=== PATIENT | male | born 1965 | race African-American/Black ===

== ENCOUNTER 2022-07-04 15:13 | Emergency (ER) | payer OTHER, SELFPAY ==
--- NOTE | ~2022-07-04 | CT_ITS ---
EXAMINATION: CT brain wo con DATE: 07/04/2022 19:16 INDICATION: new headache and hypertension . TECHNIQUE: Computed tomography (CT) of the head was performed without intravenous contrast. The mA wa s adjusted according to patient size. Iterative reconstruction technique was employed. The dose-lengt h product was 605.33 mGy-cm. COMPARISON: None. FINDINGS: No acute intracranial hemorrhage or extra-axial fluid collection. No hydrocephalus, mass, or herniation. No acute ischemic infarct. Unremarkable dural venous sinus attenuation. No acute osseous abnormality. The aerated spaces are clear. IMPRESSION: No acute intracranial process. Reviewed, dictated and finalized at location K.
--- NOTE | ~2022-07-04 | XR_ITS ---
EXAMINATION: XR chest 2V Exam Date/Time: 07/04/2022 19:15 CDT HISTORY: HTN, HIGH BP, LIGHTHEADEDNESS Comparison: None available. RESULT: Lines, tubes, and devices: None. Lungs and pleura: Clear. Cardiomediastinal silhouette: Stable. Other: No acute osseous or upper abdominal finding. IMPRESSION: No acute cardiopulmonary process. Reviewed, dictated and finalized at location K.
[2022-07-04 16:04] VITALS: BP 181/114; PULSE 56; RESP 18; TEMP 36.6; O2SAT 99
--- NOTE | 2022-07-04 18:37 | ECG_ITS ---
Measurements Intervals [place] Rate: 54 P: 55 WI: 154 QRS: 9 QRSD: 91 T: 52 QT: 455 QTc: 432 Interpretive Statements SINUS BRADYCARDIA POSSIBLE RIGHT VENTRICULAR CONDUCTION DELAY [RSR (QR) IN V1/V2] NO PREVIOUS ECG AVAILABLE FOR COMPARISON Electronically Signed On 07-05-2022 12:18:02 CDT by Isacc Bunch M.D.
--- NOTE | 2022-07-04 19:17 | ED.HA ---
HPI - Headache General Chief Complaint: Headache Stated Complaint: headache, elevated BP Time Seen by Provider: 07/04/22 18:36 History of Present Illness HPI Narrative: 57-year-old male here for evaluation of headache today. Patient states that he has had intermittent headaches for the past several years and he believes it is associated when he has high blood pressure. 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 She took his blood pressure and it was noted to be 190 systolic and she told him to come to the ER. Patient states he went home and went to sleep, woke up and the headache was still there so he decided to come to the ED. BP is 181/114 on arrival. He has no chest pain, shortness of breath, fevers or chills, nausea or vomiting, visual changes, unilateral weakness. He does not take antihypertensives and has not seen a doctor in 30 years. Related Data Allergies Allergy/AdvReac Type Severity Reaction Status Date / Time No Known Allergies Allergy Unverified 02/28/15 12:56 Review of Systems Review of Systems: Gen.: Denies fevers or chills Eyes: Denies eye pain or visual change ENT: Denies congestion Respiratory: Denies shortness of breath or cough CV: Denies chest pain or palpitations GI: Denies abdominal pain nausea, emesis or diarrhea denies burning, urgency, frequency or hematuria Musculoskeletal: Denies back pain or muscle pain Neuro: Reports headache. Denies numbness, tingling, weakness or focal weakness Skin: Denies rash Except as documented, all other systems reviewed and negative Exam Narrative: APPEARANCE: Well appearing, no pain in distress, well-nourished. Head: Normocephalic and atraumatic. EYES: PERRLA/EOMI, conjunctivae clear NOSE: No nasal drainage EARS: External ear normal in appearance THROAT: Oropharynx is clear. Mucous membranes are moist. NECK: Supple. No adenopathy, no masses. RESPIRATORY: Airway patent, respirations nonlabored. Clear to auscultation bilaterally, no rales, rhonchi, wheezing. CARDIOVASCULAR: Regular rate and rhythm without murmurs, rubs, or gallops. ABDOMINAL: Normoactive bowel sounds. Soft, nontender, nondistended. No rebound tenderness or guarding. MUSCULOSKELETAL: Extremities are warm and well-perfused. Moves all extremities well. No edema. NEURO: Normal speech. No focal neurologic deficits. SKIN: Skin is warm and dry. No rashes. PSYCHIATRIC: Normal affect/mood.. Course Vital Signs Vital signs: Vital Signs Temperature 97.9 F 07/04/22 16:04 Pulse Rate 56 L 07/04/22 16:04 Respiratory Rate 18 07/04/22 16:04 Blood Pressure 181/114 H 07/04/22 16:04 Pulse Oximetry 99 07/04/22 16:04 Oxygen Delivery Room Air 07/04/22 16:04 Temperature 97.9 F 07/04/22 16:04 Pulse Rate 54 L 07/04/22 19:30 Respiratory Rate 16 07/04/22 19:30 Blood Pressure 164/106 H 07/04/22 19:30 Pulse Oximetry 99 07/04/22 19:30 Oxygen Delivery Room Air 07/04/22 16:04 MDM - Headache MDM Narrative Medical decision making narrative: 57-year-old male here with his chronic, mild tension headache and was found to have elevated blood pressure to 190 systolic. Patient is nontoxic in appearance and has an initial blood pressure of 181/114 in the ED. This did come down to 164/106 without intervention. He has had no chest pain or shortness of breath. Basic labs are unremarkable. EKG is non-ischemic. Kidney function is normal. Head CT is normal. Chest x-ray is clear. Headache history is not concerning for SAH, no neurologic deficits and is not currently complaining of a headache. He will be discharged home to follow-up with a primary care doctor as he may benefit from antihypertensive therapy in the future. Return precautions were discussed and he voiced understanding. Lab Data 07/04/22 19:30 07/04/22 19:30 Labs: Lab Results 07/04/22 07/04/22 Range/Units 19:30 19:30
[2022-07-04 19:30] VITALS: BP 164/106; PULSE 54; RESP 16; O2SAT 99
[2022-07-04 19:38] LABS: Basophils Percent Auto 0.2 % (0.2-1.2); Eosinophils Percent Auto 0.9 % (0-4.4); Hematocrit 39.4 % (42.0-52.0); Hemoglobin 13.8 g/dL (14.0-18.0); Immature Granulocyte Absolute 0.01 K/mm3 (0.00-0.031); Immature Granulocyte Percent A 0.2 % (0-0.5); Lymphocytes Absolute Auto 1.12 K/mm3 (0.9-3.2); Lymphocytes Percent Auto 24.6 % (18.3-44.2); Mean Corpuscular Hemoglobin 35.7 pg (26-34); Mean Corpuscular Volume 101.8 fl (80-100); Mean Platelet Volume 10.1 fl (7.4-10.4); Monocytes Absolute Auto 0.6 K/mm3 (0.1-0.6); Monocytes Percent Auto 12.3 % (2.6-8.5); Neutrophils Absolute Auto 2.8 K/mm3 (1.3-6.7); Neutrophils Percent Auto 61.8 % (45.5-73.1); Platelet Count Result 193 k/mm3 (150-375); Red Blood Count 3.87 M/mm3 (4.6-6.20); Red Cell Distribution Width 12.1 % (11.5-14.5); White Blood Count 4.6 K/mm3 (4.5-10.0)
[2022-07-04 19:47] LABS: Alanine Aminotransferase 18 U/L (6-50); Albumin Level 4.2 g/dL (3.5-5.1); Alkaline Phosphatase 61 U/L (38-126); Anion Gap 5 mmol/L (8-16); Aspartate Amino Transferase 22 U/L (17-59); Bilirubin,Total 0.6 mg/dL (0.2-1.3); Blood Urea Nitrogen 16 mg/dL (9-20); Calcium 8.6 mg/dL (8.4-10.2); Carbon Dioxide 30 mmol/L (22-30); Chloride 104 mmol/L (98-107); Estimated CRCL calculation 82 ml/min; Estimated Glomerular Filt Rate > 60; Glucose 88 mg/dL (65-110); Potassium 3.6 mmol/L (3.4-5.0); Sodium 139 mmol/L (137-145)
== END 2022-07-04 20:10 | disposition home or self-care (01) ==
PROVIDERS: Emergency Provider Physician Assistant
DX: I10 Essential (primary) hypertension (principal)
CPT/HCPCS: 36415; 70450; 71046; 80053; 85025; 93005; 99284

== ENCOUNTER 2025-02-26 09:30 | Outpatient (CLI) | payer OTHER, SELFPAY ==
--- NOTE | ~2025-02-26 | XR_ITS ---
EXAMINATION: XR hand RT 2V, 02/26/2025 9:37 [employer] HISTORY: M79.644 - Pain in right finger(s) COMPARISON: No comparisons available. Findings: Abnormal lateral angulation of the digit. There are moderate degenerative changes of the proximal. Interphalangeal joint. There are moderate degenerative changes of the distal fifth interphalangeal joint, no erosions are identified. Soft tissues unremarkable. Impression: No acute fracture or malalignment. Reviewed, dictated and finalized at location P. OMS GUARD Impression: No acute fracture or malalignment.
== END 2025-02-26 09:31 | disposition home or self-care (01) ==
PROVIDERS: PCP Nurse Practitioner; Visit Provider Nurse Practitioner
DX: M79.644 Pain in right finger(s) (principal); W23.0XXA Caught, crushed, jammed, or pinched between moving objects, initial encounter
CPT/HCPCS: 73120